=== PATIENT | female | born 1985 | race Hispanic/Latino ===

== ENCOUNTER 2018-02-05 17:03 | Emergency (ER) | payer OTHER | END 2018-02-05 18:18 | disposition home or self-care (01) | LOC: EDH 17:03 | DX: S93.491A Sprain of other ligament of right ankle, initial encounter (principal); W18.39XA Other fall on same level, initial encounter; Y93.89 Activity, other specified; Y92.098 Other place in other non-institutional residence as the place of occurrence of the external cause; Y99.8 Other external cause status | CPT/HCPCS: 73610; 96374; 96375 ==